=== PATIENT | female | born 1955 | race Caucasian/White ===

== ENCOUNTER 2020-05-25 07:59 | Outpatient (REF) | payer BC, SELFPAY ==
[2020-05-25 11:15] LABS: Hematocrit 40.4 % (37-47); Hemoglobin 13.1 g/dl (12.0-16.0); Mean Corpuscular HGB Conc 32.4 g/dl (31.0-35.0); Mean Corpuscular Hemoglobin 30.1 pg (27.0-33.0); Mean Corpuscular Volume 92.9 fL (80-98); Mean Platelet Volume 11.7 fL (9.4-12.3); Platelet Count 245 X10*3/uL (160-400); Red Blood Count 4.35 X10*6/uL (4.20-5.50); Red Cell Distribution Width 11.9 % (11.0-16.0); White Blood Count 5.9 X10*3/uL (4.8-10.8)
[2020-05-25 11:44] LABS: Alanine Aminotransferase 14 U/L (0-31); Albumin Level 4.4 g/dL (3.5-5.0); Alkaline Phosphatase 57 U/L (39-117); Anion Gap 9 (12-20); Aspartate Amino Transferase 12 U/L (5-31); Bilirubin Total 0.6 mg/dL (0.0-1.0); Blood Urea Nitrogen 20 mg/dL (9-16); Calcium 9.2 mg/dL (8.4-10.2); Carbon Dioxide 27 mmol/L (22-29); Chloride 107 mmol/L (96-108); Cholesterol 179 mg/dL; Estimated Glomerular Filt Rate > 60; Glucose Fasting 87 mg/dL (60-99); HDL Cholesterol 55 mg/dL; LDL Cholesterol Calculated 109 mg/dl; Potassium 4.4 mmol/l (3.3-5.1); Sodium 139 mmol/L (135-145); Total Protein 6.9 g/dL (6.5-8.0); Triglycerides 75 mg/dL
[2020-05-25 12:08] LABS: Thyroid Stimulating Hormone 0.89 uIU/mL (0.32-4.0); Vitamin D 25-OH Total 14.8 ng/mL (>30)
== END 2020-05-25 08:00 | disposition home or self-care (01) ==
LOC: HO.MANLDS 07:59
PROVIDERS: PCP Internal Medicine; Visit Provider Internal Medicine
DX: Z00.00 Encounter for general adult medical examination without abnormal findings (principal)
CPT/HCPCS: 36415; 80053; 80061; 82306; 84443; 85027

== ENCOUNTER 2025-04-25 08:32 | Outpatient (REF) | payer BC, MEDICARE, SELFPAY ==
--- OUTSIDE RECORDS SUMMARY | 2025-04-25 08:44 | XMS_ITS | Encounter Summary ---
Author Organization [facility] Address [address] [place] [address] [place] [address] Phone Care Team Providers Care Tugboat Pilot Name Role Phone Phil Nieves DO Primary Care Provider Phil Nieves DO Unavailable Patricia Knight DIRECTOR PROFESSIONAL SERVICES Unavailable Tammy KnowlesM Unavailable Mariposa Eckert DIRECTOR PROFESSIONAL SERVICES Unavailable Althea Agarwal DIRECTOR PROFESSIONAL SERVICES Unavailable Berenice Hsieh DIRECTOR PROFESSIONAL SERVICES Unavailable Phil Nieves DO Unavailable Encounter Details Date Type Department Care Team (Late st Contact Info) Description 04/24/2020 Ancillary Orders Virtual Department [address] [place] [address] Phil Nieves DO [address] [facility] [place] [address] [place] [address] [email or web address] Other specified disorders of bone density and structure, unspecified site; Osteopenia, unspecified location; Knee pain, unspecified chronicity, unspecified laterality Social History Tobacco Use Types Packs/Day Years Used Date Smoking Tobacco: Never Smokeless Tobacco: Never Alcohol Use Standard Drinks/Week Comments Yes 5 (1 standard drink = 0.6 oz pur e alcohol) Comments No Sex and Gender Information Value Date Recorded Sex Assigned at Not on file Legal Sex Female 1:20 PM EDT Gender Identity Not on file Sexual Orientation Not on file 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 on file Not on file documented as of this encounter Plan of Treatment Upcoming Encounters Date Type Department Care Team (Late st Contact Info) Description 09/06/2025 7:45 AM EDT Appointment [facility], Bone Density - [facility] [address] [place] [address] Phil Nieves DO [address] [facility] [place] [address] [place] [address] [email or web address] documented as of this encounter Results * BD DXA AXIAL (SPINE) WITH HIP (07/12/2020 8:41 AM EST) Anatomical Region Laterality Modality Bone Density Bone Density 07/12/2020 8:43 AM EST Narrative 07/12/2020 8:52 AM EST This is a 65-year-old with provided clinical history to evaluate for bone density. Menopause age: 53.. Evaluation of the lumbar spine and hips was performed and appears to be technically adequate. Total bone mineral density in the L1-L4 vertebral bodies was calculated at 0.762 gm/cm2 with a T score of -2.6. This falls within the WHO classification of osteoporosis. Total bone mineral density in the right proximal femur was calculated at 0.726 gm/cm2 with a T-score of -1.8 falling within the WHO classification of osteopenia. Right femoral neck bone mineral density was calculated at 0.640 gm/cm2 with a T- score of -1.9. Total bone mineral density in the left proximal femur was calculated at 0.726 gm/cm2 with a T-score of -1.8 falling within the WHO classification of osteopenia. Bone mineral density in the left femoral neck was calculated at 0.626 gm/cm2 with a T-score of -2.0. FRAX: WHO Fracture Risk Assessment: Not reported because some T score for spine total or hip total or femoral neck at or below -2.5 CONCLUSION: L1-L4 vertebral body BMD: Osteoporosis. Total bilateral proximal femora BMD: Osteopenia. Procedure Note Mckay Rodriguez MD - 07/12/2020 This is a 65-year-old with provided clinical history to evaluate for bonedensity. Menopause age: 53.. Evaluation of the lumbar spine and hips was performed and appears to betechnically adequate. Total bone mineral density in the L1-L4 vertebral bodies was calculated at0.762 gm/cm2 with a T score of -2.6. This falls within the WHOclassification of osteoporosis. Total bone mineral density in the right proximal femur was calculated at0.726 gm/cm2 with a T-score of -1.8 falling within the WHO classificationof osteopenia. Right femoral neck bone mineral density was calculated at0.640 gm/cm2 with a T-score of -1.9. Total bone mineral density in the left proximal femur was calculated at0.726 gm/cm2 with a T-score of -1.8 falling within the WHO classificationof osteopenia. Bone mineral density in the left femoral neck wascalculated at 0.626 gm/cm2 with a T- score of -2.0. FRAX: WHO Fracture Risk Assessment: Not reported because some T score for spine total or hip total or femoralneck at or below -2.5 CONCLUSION: L1-L4 vertebral body BMD: Osteoporosis. Total bilateral proximal femora BMD: Osteopenia. 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 Narrative 05/10/2020 12:48 PM EST TECHNIQUE: XR KNEE 4 OR MORE VIEWS (BILATERAL) COMPARISON: None FINDINGS: Right side: There is normal bone mineralization. There is mild DJD involving the tibiofemoral joint with loss of cartilage space and subchondral sclerosis. There is no convincing evidence of joint effusion. Retropatellar space is maintained. Left side: There is moderate DJD at the femorotibial joint. There is no joint effusion and no significant retropatellar arthrosis. Multifocal osteophytes are noticed as well as small, well-corticated bone fragments adjacent to the fibula and femorotibial joint space. Procedure Note David Nash MD - 05/10/2020 TECHNIQUE: XR KNEE 4 OR MORE VIEWS (BILATERAL) COMPARISON: None FINDINGS: Right side: There is normal bone mineralization. There is mild DJDinvolving the tibiofemoral joint with loss of cartilage space andsubchondral sclerosis. There is no convincing evidence of joint effusion.Retropatellar space is maintained. Left side: There is moderate DJD at the femorotibial joint. There is nojoint effusion and no significant retropatellar arthrosis. Multifocalosteophytes are noticed as well as small, well-corticated bone fragmentsadjacent to the fibula and femorotibial joint space. IMPRESSION: Bilateral DJD of the femorotibial joint, mild on the right and moderate onthe left, as described above. Phil Nieves DO IMG XR LOWER EXTREMITY Final Res ult documented in this encounter Visit Diagnoses Diagnosis Other specified disorders of bone density and structure, unspecified site Osteopenia, unspecified location Knee pain, unspecified chronicity, unspecified laterality Knee pain, unspecified chronicity, unspecified laterality Other specified disorders of bone density and structure, unspecified site Osteopenia, unspecified location documented in this encounter Care Teams Tugboat Pilot Relationship Specialty Start Date End Date Phil Nieves DO PCP - General 10/05/15 Phil Nieves DO Historical LMR Provider 02/16/17 Patricia Knight, BERNADETTE [address] [address] Historical LMR Provider 02/16/17 2 Tammy Knowles CNM [address] [place] [address] Historical LMR Provider 02/16/17 2 Mariposa Eckert NP [address] [place] [address] [email or web address] Historical LMR Provider 02/16/17 2 Althea Agarwal NP [address] [place] [address] Historical LMR Provider 02/16/17 2 Berenice Hsieh NP [address] [place] [address] Historical LMR Provider 02/16/17 2 Phil Nieves DO [address] [place] [address] [email or web address] Insurance Assigned Provider 08/07/18 documented as of this encounter Additional Source Comments The information contained in this document represents components of the legal health record. It is not the complete legal health record.[facility]
--- OUTSIDE RECORDS SUMMARY | 2025-04-25 08:44 | XMS_ITS | Encounter Summary ---
Author Organization [facility] Address [address] [place] [address] Phone Care Team Providers Care Leather Patcher Name Role Phone Phil Nieves DO Primary Care Provider [phone] Phil Nieves DO Unavailable Patricia Knight JAW SKINNER Unavailable Tammy Knowles CNM Unavailable Mariposa Eckert JAW SKINNER Unavailable Althea Agarwal JAW SKINNER Unavailable Berenice Hsieh JAW SKINNER Unavailable BigPhil sesay DO Unavailable Encounter Details Date Type Department Care Team (Late st Contact Info) Description 03/30/2018 Procedure Pass [facility] Endoscopy Admitting Dept Virtual Department [address] [place] [address] Social History Tobacco Use Types Packs/Day Years [...] 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 on file Not on file documented as of this encounter Plan of Treatment Upcoming Encounters Date Type Department Care Team (Late st Contact Info) Description 09/06/2025 7:45 AM EDT Appointment [facility], [facility] [address] [place] [address] Phil Nieves DO [address] [facility] [place] [address] documented as of this encounter Visit Diagnoses Not on filedocumented in this encounter Care Teams Leather Patcher Relationship Specialty Start Date End Date Phil Nieves DO PCP - General 10/05/15 Phil Nieves DO Historical LMR Provider 02/16/17 Patricia Knight, BERNADETTE [address] [place] [address] Historical LMR Provider 02/16/17 2 Tammy Knowles CNM [address] [place] [address] Historical LMR Provider 02/16/17 2 Mariposa Eckert, JAW SKINNER [address] [place] [address] [email or web address] Historical LMR Provider 02/16/17 2 Althea Agarwal, BERNADETTE [address] [place] [address] Historical LMR Provider 02/16/17 2 Berenice Hsieh NP [address] [place] [address] Historical LMR Provider 02/16/17 2 Phil Nieves DO [address] [place] [address] [email or web address] Insurance Assigned Provider 08/07/18 documented as of this encounter Additional Source Comments The information contained in this document represents components of the legal health record. It is not the complete legal health record.[facility]
--- OUTSIDE RECORDS SUMMARY | 2025-04-25 08:44 | XMS_ITS | Encounter Summary ---
Author Organization [facility] Address [address] [place] [address] Phone Care Team Providers Care Sewer Head Name Role Phone Phil Nieves DO Primary Care Provider [phone] Phil Nieves DO Unavailable Encounter Details Date Type Department Care Team (Late st Contact Info) Description 11/12/2023 Procedure Pass [facility] Endoscopy Admitting Dept Virtual Department [address] [place] [address] Social History Tobacco Use Types Packs/Day Years Used Date Smoking Tobacco: Never Smokeless Tobacco: Never Alcohol Use Standard Drinks/Week Comments Yes 5 (1 standard drink = 0.6 oz pur e alcohol) Education Answer Date Recorded Are you interested in more education? Not on krishna e 08/29/2022 Are you concerned about learning? Not on file 08/29/2022 No 08/29/2022 No 08/29/2022 Digital Access Answer Date Recorded No 09/29/2022 No 09/29/2022 Reliable internet access at home? Not on file 09/29/2022 Device with a working camera? Not on file Intimate Partner Violence Answer Date R ecorded Are you denied basic needs s uch as food, clothing, or medical care? No 11/12/2023 In the past 12 months have y ou been in a relationship with a person who hurts, threatens, or tries to control you? No 11/12/2023 Are you denied basic needs s uch as food, clothing, or medical care? No 11/12/2023 In the past 12 months have y ou been in a relationship with a person who hurts, threatens, or tries to control you? 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 file Not on file documented as of this encounter Plan of Treatment Upcoming Encounters Date Type Department Care Team (Late st Contact Info) Description 09/06/2025 7:45 AM EDT Appointment [facility], [facility] [address] [place] [address] Phil Nieves DO [address] [facility] [place] [address] documented as of this encounter Visit Diagnoses Not on filedocumented in this encounter Care Teams Sewer Head Relationship Specialty Start Date End Date Phil Nieves DO PCP - General 10/05/15 Phil Nieves DO Historical LMR Provider 02/16/17 documented as of this encounter Additional Source Comments The information contained in this document represents components of the legal health record. It is not the complete legal health record.[facility]
--- OUTSIDE RECORDS SUMMARY | 2025-04-25 08:44 | XMS_ITS | Encounter Summary ---
Author Organization [facility] Address [address] [place] [address] Phone Care Team Providers Care Cell Reliner Name Role Phone Phil Nieves DO Primary Care Provider Phil Nieves DO Unavailable Patricia Knight NETWORK ASSOCIATE Unavailable Tammy KnowlesM Unavailable Mariposa Eckert NETWORK ASSOCIATE Unavailable Althea Agarwal NETWORK ASSOCIATE Unavailable Berenice Hsieh NETWORK ASSOCIATE Unavailable Phil Nieves DO Unavailable Encounter Details Date Type Department Care Team (Late st Contact Info) Description 05/09/2020 Ancillary Orders Virtual Department [address] [place] [address] Phil Nieves DO [address] [facility] [place] [address] [place] [address] [email or web address] Breast screening Social History Tobacco Use Types Packs/Day Years [...] 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 Not on file documented as of this encounter Plan of Treatment Upcoming Encounters Date Type Department Care Team (Late st Contact Info) Description 09/06/2025 7:45 AM EDT Appointment [facility], Bone Density - [facility] [address] [place] [address] Phil Neives DO [address] [facility] [place] [address] [place] [address] [email or web address] documented as of this encounter Results * BI MAMMOGRAM SCREENING WITH TOMOSYNTHESIS WITH CAD (BILATERAL) (07/12/2020 8:08 AM EST) Anatomical Region Laterality Modality Breast Left, Breast Right, Breast Bilateral Bila teral Mammography 07/12/2020 3:28 PM EST Impressions 07/12/2020 3:30 PM EST BILATERAL BREASTS: Negative, no evidence of malignancy. Normal interval follow- up is recommended in 12 months. Bi-RADS: BI-RADS CATEGORY: 1 - Negative. DENSITY: There are scattered fibroglandular densities. Narrative 07/12/2020 3:30 PM EST STUDY: Bilateral screening mammography with tomosynthesis and CAD TECHNIQUE: Bilateral full-field digital screening mammography is obtained and read in conjunction with computer-aided detection. Tomosynthesis as well as 2-D C view imaging were obtained. COMPARISON: Comparison made to multiple prior, most recent December 31, 2017, and most remote January 14, 2012. BREAST COMPOSITION: There are scattered areas of fibroglandular density BILATERAL BREASTS: No significant masses, suspicious calcifications or other abnormalities are seen. Procedure Note Irineo Aparicio MD - 07/12/2020 STUDY: Bilateral screening mammography with tomosynthesis and CAD TECHNIQUE: Bilateral full-field digital screening mammography is obtainedand read in conjunction with computer-aided detection. Tomosynthesis aswell as 2-D C view imaging were obtained. COMPARISON: Comparison made to multiple prior, most recent December, and most remote January 14, 2012. BREAST COMPOSITION: There are scattered areas of fibroglandulardensity BILATERAL BREASTS: No significant masses, suspicious calcifications orother abnormalities are seen. IMPRESSION: BILATERAL BREASTS: Negative, no evidence of malignancy. Normal intervalfollow-up is recommended in 12 months. Bi-RADS: BI-RADS CATEGORY: 1 - Negative. DENSITY: There are scattered fibroglandular densities. Phil Nieves DO IMG MG EXAMS Final Result documented in this encounter Visit Diagnoses Diagnosis Breast screening Breast screening, unspecified Breast screening Breast screening, unspecified documented in this encounter Care Teams Cell Reliner Relationship Specialty Start Date End Date Phil Nieves DO PCP - General 10/05/15 Phil Nieves DO Historical LMR Provider 02/16/17 Patricia Knight NP [address] [place] [address] Historical LMR Provider 02/16/17 2 Tammy Knowles CNM [address] [place] [address] Historical LMR Provider 02/16/17 2 Mariposa Eckert NP [address] [place] [address] [email or web address] Historical LMR Provider 02/16/17 2 Althea Agarwal NP [address] [place] [address] Historical LMR Provider 02/16/17 2 Berenice Hsieh NP [address] [place] [address] Historical LMR Provider 02/16/17 2 Phil Nieves DO [address] [place] [address] [email or web address] Insurance Assigned Provider 08/07/18 documented as of this encounter Additional Source Comments The information contained in this document represents components of the legal health record. It is not the complete legal health record.[facility]
--- OUTSIDE RECORDS SUMMARY | 2025-04-25 08:44 | XMS_ITS | Encounter Summary ---
Author Organization [facility] Address [address] [place] [address] Phone Care Team Providers Care Abstract Maker Name Role Phone Phil Nieves DO Primary Care Provider [phone] Phil Nieves DO Unavailable Patricia Knight DROP CREW LABORER Unavailable Tammy KnowlesM Unavailable Mariposa Eckert DROP CREW LABORER Unavailable Althea Agarwal DROP CREW LABORER Unavailable Berenice Hsieh DROP CREW LABORER Unavailable [email or web address] DO Unavailable Encounter Details Date Type Department Care Team (Late Contact Info) Description 05/09/2020 Procedure Pass [facility], [facility] [address] [place] [address] Social History Tobacco Use Types Packs/Day Years [...] 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 [address] [place] [address] Phil Nieves DO [address] [facility] [place] [address] [place] [address] documented as of this encounter Visit Diagnoses Not on filedocumented in this encounter Care Teams Abstract Maker Relationship Specialty Start Date End Date Phil Nieves DO PCP - General 10/05/15 Phil Nieves DO Historical LMR Provider 02/16/17 Patricia Knight, DROP CREW LABORER [address] [place] [address] Historical LMR Provider 02/16/17 2 Tammy Knowles CNM [address] [place] [address] Historical LMR Provider 02/16/17 2 Mariposa Eckert, DROP CREW LABORER [address] [place] [address] [email or web address] Historical LMR Provider 02/16/17 2 Althea Agarwal, DROP CREW LABORER [address] [place] [address] Historical LMR Provider 02/16/17 2 Berenice Hsieh, DROP CREW LABORER [address] [place] [address] Historical LMR Provider 02/16/17 2 Phil Nieevs DO [address] [place] [address] [email or web address] Insurance Assigned Provider 08/07/18 documented as of this encounter Additional Source Comments The information contained in this document represents components of the legal health record. It is not the complete legal health record.[facility]
--- OUTSIDE RECORDS SUMMARY | 2025-04-25 08:45 | XMS_ITS | Encounter Summary ---
Author Organization [facility] Address [address] [facility] [address] [place] [address] Phone Care Team Providers Care Imaging Scheduler Name Role Phone Phil Nieves DO Primary Care Provider [phone] Phil Nieves DO Unavailable Encounter Details Date Type Department Care Team ([facility] st Contact Info) Description 01/20/2024 Transcribe Orders Virtual Department [address] [place] [address] Phil Nieves DO [address] [facility] [place] [address] [place] [address] [email or web address] Breast screening (Primary Dx) Social History Tobacco Use Types Packs/Day Years [...] 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 Not on file documented as of this encounter Plan of Treatment Upcoming Encounters Date Type Department Care Team (Late st Contact Info) Description 09/06/2025 7:45 AM EDT Appointment [facility], [facility] [address] [place] [address] Phil Nieves DO [address] [place] [address] [email or web address] documented as of this encounter Results * BI MAMMOGRAM SCREENING WITH TOMOSYNTHESIS WITH CAD (BILATERAL) (02/02/2024 9:59 AM EDT) Anatomical Region Laterality Modality Breast Left, Breast Right, Breast Bilateral Bila teral Mammography 02/02/2024 1:05 PM EDT Impressions 02/02/2024 1:07 PM EDT No mammographic evidence of malignancy in either breast. Annual screening mammography is recommended. BI-RADS 1 NEGATIVE The patient will be notified of the results and recommendations. Narrative 02/02/2024 1:07 PM EDT BI MAMMOGRAM SCREENING WITH TOMOSYNTHESIS WITH CAD (BILATERAL) Additional patient information: Screening. COMPARISON: Comparison is made with relevant prior imaging. Breast composition: There are scattered areas of fibroglandular density. FINDINGS: No abnormal masses, suspicious calcifications, or other significant findings are identified mammographically in either breast. Procedure Note Eusebia Levine MD - 02/02/2024 BI MAMMOGRAM SCREENING WITH TOMOSYNTHESIS WITH CAD (BILATERAL) Additional patient information: Screening. COMPARISON: Comparison is made with relevant prior imaging. Breast composition: There are scattered areas of fibroglandular density. FINDINGS: No abnormal masses, suspicious calcifications, or other significantfindings are identified mammographically in either breast. IMPRESSION: No mammographic evidence of malignancy in either breast. Annual screening mammography is recommended. BI-RADS 1 NEGATIVE The patient will be notified of the results and recommendations. us Phil Nieves DO IMG MG EXAMS Final Result documented in this encounter Visit Diagnoses Diagnosis Breast screening- Primary Breast screening, unspecified Breast screening Breast screening, unspecified documented in this encounter Care Teams Imaging Scheduler Relationship Specialty Start Date End Date Phil Nieves DO [email or web address] PCP - General 10/05/15 Phil Nieves DO [email or web address] Historical LMR Provider 02/16/17 documented as of this encounter Additional Source Comments The information contained in this document represents components of the legal health record. It is not the complete legal health record.[facility]
--- OUTSIDE RECORDS SUMMARY | 2025-04-25 08:45 | XMS_ITS | Encounter Summary ---
Author Organization [facility] Address [address] [facility] [address] [place] [address] Phone Care Team Providers Care Surface Boss Name Role Phone Phil Nieves DO Primary Care Provider [phone] Phil Nieves DO Unavailable Encounter Details Date Type Department Care Team ([facility] st Contact Info) Description 04/04/2025 Transcribe Orders Virtual Department [address] [place] [address] Phil Nieves DO [address] [facility] 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 Not on file documented as of this encounter Plan of Treatment Upcoming Encounters Date Type Department Care Team (Late st Contact Info) Description 09/06/2025 7:45 AM EDT Appointment [facility], Bone Density - [facility] [address] [place] [address] Phil Nieves DO [address] [facility] [place] [address] [email or web address] Scheduled Orders Name Type Priority Associated Diagnoses Orde r Schedule DXA Screening Imaging Routine Encounter for screening for osteoporosis Expected: 05/04/2025, Expires: 04/04/2026 documented as of this encounter Visit Diagnoses Diagnosis Encounter for screening for osteoporosis- Primary documented in this encounter Care Teams Surface Boss Relationship Specialty Start Date End Date Phil Nieves DO [email or web address] PCP - General 10/05/15 Phil Nieves DO [email or web address] Historical LMR Provider 02/16/17 documented as of this encounter Additional Source Comments The information contained in this document represents components of the legal health record. It is not the complete legal health record.[facility]
--- OUTSIDE RECORDS SUMMARY | 2025-04-25 08:45 | XMS_ITS | Encounter Summary ---
Author Organization [facility] Address [address] [place] [address] Phone Care Team Providers Care Mechanical Ordnance Assembler Name Role Phone KennylázaroPhil DO Primary Care Provider [phone] Phil Nieves DO Unavailable Encounter Details Date Type Department Care Team (Late st Contact Info) Description 11/25/2022 Procedure Pass [facility], [address] [address] Social History Tobacco Use Types Packs/Day Years [...] with a working camera? 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 Not on file Not on file documented as of this encounter Plan of Treatment Upcoming Encounters Date Type Department Care Team (Late st Contact Info) Description 09/06/2025 7:45 AM EDT Appointment [facility], Bone Density - [facility] [address] [place] [address] Phil Nieves DO [address] [facility] [address] [place] [address] [email or web address] documented as of this encounter Visit Diagnoses Not on filedocumented in this encounter Care Teams Mechanical Ordnance Assembler Relationship Specialty Start Date End Date Phil Nieves DO PCP - General 10/05/15 Pihl Nieves DO Historical LMR Provider 02/16/17 documented as of this encounter Additional Source Comments The information contained in this document represents components of the legal health record. It is not the complete legal health record.[facility]
--- OUTSIDE RECORDS SUMMARY | 2025-04-25 08:45 | XMS_ITS | Encounter Summary ---
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 Not on file Not on file documented as of this encounter Plan of Treatment Upcoming Encounters Date Type Department Care Team (Late st Contact Info) Description 09/06/2025 7:45 AM EDT Appointment [facility], [facility] [address] [place] [address] Phil Nieves DO [address] [facility] [place] [address] [email or web address] documented as of this encounter Visit Diagnoses Not on filedocumented in this encounter Care Teams Svp Of Digital Relationship Specialty Start Date End Date Phil Nieves DO PCP - General 10/05/15 Phil Nieves DO Historical LMR Provider 02/16/17 documented as of this encounter Additional Source Comments The information contained in this document represents components of the legal health record. It is not the complete legal health record.[facility]
--- OUTSIDE RECORDS SUMMARY | 2025-04-25 08:45 | XMS_ITS | Clinical Summary ---
Author Organization [facility] Address [address] [address] Phone Care Team Providers Care Director Of Bands Name Role Phone Ciarra Slater DO Primary Care Provider Ciarra Slater DO Unavailable Allergies No known active allergies Medications valACYclovir (VALTREX) 1000 MG tablet TAKE 1 TABLET BY MOUTH TWICE A DAY FOR 1 DAY 12/02/2022 Active Active Problems Problem Noted Date Diagnosed Date Lichen sclerosus 02/01/2018 Assessment & Plan (04/25/2021 9:30 AM EST): Not under good control Has been using topicals about 1-2x monthly Feels intermittent discomfort Sex is rare, and painful We reviewed today with a mirror the area of LS and how to apply the clobetasol, and estrace. Lluvia handout put in AVS, she is on portal Advised f/u visit in 3-6 months Assessment & Plan (02/01/2018 11:06 AM EDT): Discussed importance of ongoing topical therapy to decrease progression and avoid onset of symptoms. Suggested she use in conjunction with estrace once on twice weekly schedule.. Reviewed sparing use of clobetasol in lentil size amount and then layer estrace on top twice weekly Vaginal atrophy 02/01/2018 Assessment & Plan (04/25/2021 9:31 AM EST): Discussed option to use estrace intravaginally with applicator or finger, 1g twice weekly to increase chance of comfort with sex, vs. A small amount at the introitus twice weekly Assessment & Plan (02/01/2018 11:03 AM EDT): Recommended regular schedule of estrace for increased sexual comfort. Estrace initial and maintenance dosing reviewed. Offered 3 mo follow up for eval of response to therapy or routine 6 mo LS f/u Encounters Date Type Department Care Team Description 04/04/2025 Transcribe Orders Virtual Department [address] [place] [address] Ciarra Slater, Encounter for screening for osteoporosis (Primary Dx) 02/03/2025 10:59 AM EDT - 02/03/2025 11:59 PM EDT Hospital Encounter [address] [address] Ciarra Slater, DO Discharge Disposition: Home or Self Care 11/28/2024 Procedure Pass [address] [address] from Last 3 Months Family History Medical History Relation Comments Lung cancer Father Cancer Mother Gallbladder Breast cancer Paternal Aunt Colon cancer Paternal Aunt Relation Status Comments Father Mother Paternal Aunt Social History Tobacco Use Types Packs/Day Years Used Date Smoking Tobacco: Never Smokeless Tobacco: Never Tobacco Cessation:Counseling Given: Not Answered Alcohol Use Standard Drinks/Week Comments Not Currently [...] 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 Not on file Not on file Last Filed Vital Signs Vital Sign Reading Time Taken Comments Blood Pressure 132/81 11/12/2023 9:39 AM EDT Pulse 61 11/12/2023 9:39 AM EDT Temperature 36.2 C (97.2 F) 11/12/2023 9:24 AM EDT Respiratory Rate 17 11/12/2023 9:39 AM EDT Oxygen Saturation 99% 11/12/2023 9:39 AM EDT Inhaled Oxygen Concentration - - Weight 70.3 kg (155 lb) 11/12/2023 8:23 AM EDT Height 167.6 cm (5' 6 ) 11/12/2023 8:23 AM EDT Body Mass Index 25.02 11/12/2023 8:23 AM EDT Plan of Treatment Upcoming Encounters Date Type Department Care Team (Late st Contact Info) Description 09/06/2025 7:45 AM EDT Appointment [facility], Bone Density - [address] [address] Ciarra Slater, [address] [facility] [place] [address] [email or web address] Health Maintenance Due Date Last Done Comments DEPRESSION SCREENING 1968 HEPATITIS C SCREENING 1974 SCREENING FOR DIABETES 1991 COLOGUARD 2001 FIT TEST 2001 FOBT 2001 SIGMOIDOSCOPY 2001 VIRTUAL COLONOSCOPY 2001 PNEUMOCOCCAL VACCINES (50+ years) (1 of 1 - PCV) 2006 INFLUENZA VACCINE (#1) 2024 , 02/28/2022, 03/12/2021, Additional history exists COVID-19 VACCINE ( season) 2025 02/26/2023, 02/28/2022, 03/12/2021, Additional history exists LIPID PANEL 05/25/2025 05/25/2020 MAMMOGRAM 02/03/2027 02/03/2025, 1005/2023, 12/02/2022, Additional history exists COLONOSCOPY 11/11/2030 11/12/2023, 03/30/2018 COLORECTAL CANCER SCREENING 11/11/2030 RSV VACCINE (1 - 1-dose 75+ series) 2031 Adult Td,Tdap Booster 09/30/2032 09/30/2022 OSTEOPOROSIS SCREENING INITIAL (ONE-TIME) Completed 07/12/2020 ZOSTER VACCINES Completed 02/26/2023, 09/30/2022 SMOKING STATUS SCREENING (Once After 26 Yrs) Completed 02/03/2025 HEPATITIS A VACCINES Aged Out No long er eligible based on patient's age to complete this topic HIB VACCINES Aged Out No longer eligi ble based on patient's age to complete this topic MENINGOCOCCAL VACCINES (ACWY) Aged Out No longer eligible based on patient's age to complete this topic MENINGOCOCCAL VACCINES (B) Aged Out N o longer eligible based on patient's age to complete this topic Medical Devices Not on file Procedures Procedure Name Priority Date/Time Associated Diagnosis Comments BI MAMMOGRAM SCREENING WITH TOMOSYNTHESIS WITH CAD (BILATERAL) Routine 02/03/2025 11:12 AM EDT Breast screening ENDOSCOPY, COLON 11/12/2023 9:00 AM EDT BD DXA AXIAL (SPINE) WITH HIP Routine 07/12/2020 8:41 AM EST Other specified disorders of bone density and structure, unspecified site Osteopenia, unspecified location from Last 3 Months or Most Recently Relevant to Health Maintenance Results * BI MAMMOGRAM SCREENING WITH TOMOSYNTHESIS WITH CAD (BILATERAL) (02/03/2025 11:12 AM EDT) Anatomical Region Laterality Modality Breast Left, Breast Right, Breast Bilateral Bila teral Mammography 02/03/2025 3:28 PM EDT Impressions 02/03/2025 3:28 PM EDT No mammographic evidence of malignancy in either breast. Annual screening mammography is recommended. BI-RADS 1 NEGATIVE The patient will be notified of the results and recommendations. Narrative 02/03/2025 3:28 PM EDT BI MAMMOGRAM SCREENING WITH TOMOSYNTHESIS WITH CAD (BILATERAL) Additional patient information: Screening. COMPARISON: Comparison is made with relevant prior imaging. Breast composition: There are scattered areas of fibroglandular density. FINDINGS: No abnormal masses, suspicious calcifications, or other significant findings are identified mammographically in either breast. Procedure Note Eusebia Martínez MD - 02/03/2025 BI MAMMOGRAM SCREENING WITH TOMOSYNTHESIS WITH CAD [...] notified of the results and recommendations. us Ciarra A Bigda DO IMG MG EXAMS Final Result * ENDOSCOPY, COLON (11/12/2023 9:00 AM EDT) Narrative Transcriptions Bart Aviles MD - 11/12/2023 9:00 AM EDT [facility] Patient Name: Michelle Rangel Attending MD:: BART AVILES MD, Procedure Date: 11/12/2023 9:00 AM Date of : 1955 Age: 68 Admit Type: Outpatient Gender: Female Room: [facility] Referring MD: CIARRA SLATER DO Exam Type: Colonoscopy Indications: Screening for colon cancer: Family history of colorectal cancer in multiple 2nd degree relatives, (cousin, aunt) Last colonoscopy: March 2018 Medications: Propofol per Anesthesia Procedure: Informed consent was obtained from the patientafter discussion of the indications, limitations, alternatives, benefits, and risks of the procedure. Risks specifically discussed include but are not limited to medication reactions, missed lesions, bleeding, perforation, or the need for emergent surgery. Throughout the procedure, the patient's blood pressure, pulse, end-tidal CO2, and oxygensaturations were monitored continuously. The Colonoscope was introduced through the anus and advanced to the cecum, identified by appendiceal orifice and ileocecal valve. The ileocecal valve, appendiceal orifice, and rectum were photographed.The colonoscopy was performed without difficulty. The patient tolerated the procedure well. The qualityof the bowel preparation was good. The bowelpreparation used was GoLYTELY via split dose instruction. Complications: No immediate complications. Estimated blood loss:None. Findings: The perianal and digital rectal examinations were normal. Pertinent negatives include no palpablerectal lesions. The entire examined colon appeared normal on direct and retroflexion views. Retroflexion in the right colon was performed. Impression: - The entire examined colon is normal on direct and retroflexion views. - No specimens collected. Recommendation: - Repeat colonoscopy 7-8 years for screeningpurposes. BART AVILES MD 11/12/2023 9:24:20 AM This report has been signed electronically. Number of Addenda: 0 Note Initiated On: 11/12/2023 9:00 AM Procedure Code(s): --- Professional --- 97830, Colonoscopy, flexible; diagnostic, including collection of specimen(s) by brushing or washing, when performed (separateprocedure) --- Technical --- 03208, Colonoscopy, flexible; diagnostic, including collection of specimen(s) by brushing or washing, when performed (separateprocedure) Diagnosis Code(s): --- Professional --- Z80.0, Family history of malignant neoplasm of digestive organs --- Technical --- Z80.0, Family history of malignant neoplasm of digestive organs CPT copyright 2021 [employer]. All rights reserved. The codes documented in this report are preliminary and upon flat finisher reviewmay be revised to meet current compliance requirements. Procedure Date: 11/12/2023 9:00:[address] [place] [address] us Ciarra A Bigda DO GI PROCEDURE ORDERABLES Final Re sult * BD DXA AXIAL (SPINE) WITH HIP [...] Total bilateral proximal femora BMD: Osteopenia. us Ciarra A Bigda DO IMG BD BONE DENSITY DEXA Final R esult from Last 3 Months or Most Recently Relevant to Health Maintenance Insurance MEDICARE PART A & B [employer] MEDEX SUPPLEMENT MEDICARE PART A & B [employer] MEDEX SUPPLEMENT MEDICARE PART A & B MEDICARE PART A & B MEDICARE PART A & B [employer] SUPPLEMENT MEDICARE PART A & B MEDICARE PART A & B [employer] MEDEX SUPPLEMENT MEDICARE PART A & B [facility] SUPPLEMENT MEDICARE PART A & B [employer] MEDEX SUPPLEMENT Care Teams Director Of Bands Relationship Specialty Start Date End Date Ciarra Slater DO PCP - General 10/05/15 Ciarra Slater DO Historical LMR Provider 02/16/17 Additional Source Comments The information contained in this document represents components of the legal health record. It is not the complete legal health record.[facility]
--- OUTSIDE RECORDS SUMMARY | 2025-04-25 08:45 | XMS_ITS | Encounter Summary ---
Author Organization [facility] Address [address] [place] [address] Phone Care Team Providers Care Data Entry Representative Name Role Phone Phil Nieves DO Primary Care Provider Phil Nieves DO Unavailable Patricia Knight FOOD SAFETY OFFICER Unavailable Tammy KnowlesM Unavailable Mariposa Eckert FOOD SAFETY OFFICER Unavailable Althea Agarwal FOOD SAFETY OFFICER Unavailable Berenice Hsieh FOOD SAFETY OFFICER Unavailable Phil Nieves DO Unavailable Encounter Details Date Type Department Care Team (Late Contact Info) Description 11/26/2017 Ancillary Orders Virtual Department [address] [place] [address] Phil Nieves DO [address] [facility] [place] [address] [place] [address] [email or web address] Breast screening Social History Tobacco Use Types Packs/Day Years Used Date Smoking Tobacco: Never Assessed Comments Unknown Sex and Gender Information Value Date Recorded Sex Assigned at Not on file Legal Sex Female 1:20 PM EDT Gender Identity Not on file Sexual Orientation Not on file documented as of this encounter Plan of Treatment Upcoming Encounters Date Type Department Care Team (Late st Contact Info) Description 09/06/2025 7:45 AM EDT Appointment [facility], Bone Density - [facility] [address] [place] [address] Phil Nieves, [address] [facility] [place] [address] [place] [address] [email or web address] documented as of this encounter Results * BI MAMMOGRAM SCREENING WITH TOMOSYNTHESIS WITH CAD (BILATERAL) (12/31/2017 8:13 AM EDT) Anatomical Region Laterality Modality Breast Left, Breast Right, Breast Bilateral Bila teral Mammography 12/31/2017 9:05 AM EDT Impressions 12/31/2017 9:14 AM EDT No mammographic evidence of malignancy. BI-RADS CATEGORY: 2 - Benign finding. DENSITY: There are scattered fibroglandular densities. POS - [id number] Narrative 12/31/2017 9:14 AM EDT Standard digital full-field 2-D C view and two-plane tomographic imaging was performed and compared with multiple prior studies, most recently 10/01/2016 and 10/08/2016, with utilization of computer-aided detection. The breasts are composed of scattered fibroglandular densities. There has been interval decrease in size of the sonographically-demonstrated cyst in the upper outer quadrant of the right breast. The stromal markings are otherwise essentially unchanged in overall appearance and distribution. No dominant spiculated mass, suspicious clustered microcalcifications, or focal zone of pathologic skin thickening or retraction are noted to have arisen in the interim. Procedure Note Bart Zheng MD - 12/31/2017 Standard digital full-field 2-D C view and two-plane tomographic imagingwas performed and compared with multiple prior studies, most [id number]/31/2017 and 10/08/2016, with utilization of computer-aided detection. The breasts are composed of scattered fibroglandular densities. There hasbeen interval decrease in size of the sonographically-demonstrated cyst inthe upper outer quadrant of the right breast. The stromal markings areotherwise essentially unchanged in overall appearance and distribution. Nodominant spiculated mass, suspicious clustered microcalcifications, orfocal zone of pathologic skin thickening or retraction are noted to havearisen in the interim. IMPRESSION: No mammographic evidence of malignancy. BI-RADS CATEGORY: 2 - Benign finding. DENSITY: There are scattered fibroglandular densities. POS - [id number] us Phil Nieves DO IMG MG EXAMS Final Result documented in this encounter Visit Diagnoses Diagnosis Breast screening Breast screening, unspecified Breast screening Breast screening, unspecified documented in this encounter Care Teams Data Entry Representative Relationship Specialty Start Date End Date Phil Nieves DO PCP - General 10/05/15 Phil Nieves DO Historical LMR Provider 02/16/17 Patricia Knight NP [address] [address] Historical LMR Provider 02/16/17 2 Tammy Knowles CNM [address] [place] [address] Historical LMR Provider 02/16/17 2 Mariposa Eckert NP [address] [place] [address] [email or web address] Historical LMR Provider 02/16/17 2 Althea Agarwal NP [address] [place] [address] Historical LMR Provider 02/16/17 2 Berenice Hsieh NP [address] [place] [address] Historical LMR Provider 02/16/17 2 Phil Nieves DO [address] [place] [address] [email or web address] Insurance Assigned Provider 08/07/18 documented as of this encounter Additional Source Comments The information contained in this document represents components of the legal health record. It is not the complete legal health record.[facility]
--- OUTSIDE RECORDS SUMMARY | 2025-04-25 08:45 | XMS_ITS | Encounter Summary ---
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 file Not on file documented as of this encounter Plan of Treatment Upcoming Encounters Date Type Department Care Team (Late st Contact Info) Description 09/06/2025 7:45 AM EDT Appointment [facility], [facility] [address] [place] [address] Phil Nieves DO [address] [facility] [place] [address] [place] [address] documented as of this encounter Visit Diagnoses Not on filedocumented in this encounter Care Teams Haircutter Relationship Specialty Start Date End Date Phil Nieves DO PCP - General 10/05/15 Phil Nieves DO Historical LMR Provider 02/16/17 documented as of this encounter Additional Source Comments The information contained in this document represents components of the legal health record. It is not the complete legal health record.[facility]
--- OUTSIDE RECORDS SUMMARY | 2025-04-25 08:45 | XMS_ITS | Encounter Summary ---
Author Organization [facility] Address [address] [place] [id number] Phone Care Team Providers Care Die Repairer Forging Name Role Phone Phil Nieves DO Primary Care Provider [phone] Phil Nieves DO Unavailable Patricia Knight COORDINATOR HOTELS Unavailable [phone] Tammy KnowlesM Unavailable Mariposa Eckert COORDINATOR HOTELS Unavailable Althea Agarwal COORDINATOR HOTELS Unavailable Berenice Hsieh COORDINATOR HOTELS Unavailable BigPhil sesay DO Unavailable Encounter Details Date Type Department Care Team (Late Contact Info) Description 04/25/2021 Procedure Pass [facility], [address] [address] Social History Tobacco Use Types Packs/Day Years [...] 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 Not on file documented as of this encounter Plan of Treatment Upcoming Encounters Date Type Department Care Team (Late st Contact Info) Description 09/06/2025 7:45 AM EDT Appointment [facility], Bone Density - [facility] [address] [place] [address] Phil Nieves DO [address] [facility] [place] [address] [place] [address] documented as of this encounter Visit Diagnoses Not on filedocumented in this encounter Care Teams Die Repairer Forging Relationship Specialty Start Date End Date Phil Nieves DO PCP - General 10/05/15 Phil Nieves DO Historical LMR Provider 02/16/17 Patricia Knight, COORDINATOR [employer]ELS [address] [place] [id number] Historical LMR Provider 02/16/17 2 Tammy Knowles CNM [address] [place] [address] Historical LMR Provider 02/16/17 2 Mariposa Eckert, COORDINATOR [employer]ELS [address] [place] [address] [email or web address] Historical LMR Provider 02/16/17 2 Althea Agarwal, COORDINATOR [employer] [address] [place] [address] Historical LMR Provider 02/16/17 2 Berenice Hsieh, COORDINATOR [employer]ELS [address] [place] [phone] Historical LMR Provider 02/16/17 2 Phil Nieves DO [address] [place] [id number] [email or web address] Insurance Assigned Provider 08/07/18 documented as of this encounter Additional Source Comments The information contained in this document represents components of the legal health record. It is not the complete legal health record.[facility]
[2025-04-25 13:54] LABS: MANUAL DIFF FLAG NO
[2025-04-25 13:59] LABS: Hematocrit 40.1 % (37.0-47.0); Hemoglobin 13.1 g/dl (12.0-16.0); Imm Gran Abs Auto 0.01 X10*3/uL (0.00-0.03); Imm Gran Pct Auto 0.2 % (0.0-0.4); Lymphocytes Absolute Auto 2.0 X10*3/uL (1.2-4.9); Mean Corpuscular HGB Conc 32.7 g/dl (31.0-35.0); Mean Corpuscular Hemoglobin 30.1 pg (27.0-33.0); Mean Corpuscular Volume 92.2 fL (80.0-98.0); NRBC Abs Auto 0.000 X10*3/uL (0.0-0.012); NRBC Pct Auto 0.0 /100WBC (0.0-0.2); Platelet Count 259 X10*3/uL (160-400); Red Blood Count 4.35 X10*6/uL (4.20-5.50); White Blood Count 5.3 X10*3/uL (4.8-10.8)
[2025-04-25 14:13] LABS: Alanine Aminotransferase 17 U/L (0-31); Albumin Level 4.3 g/dL (3.5-5.0); Alkaline Phosphatase 58 U/L (39-117); Anion Gap 10 (12-20); Aspartate Amino Transferase 18 U/L (5-31); Blood Urea Nitrogen 14 mg/dL (9-16); Calcium 9.0 mg/dL (8.4-10.2); Carbon Dioxide 26 mmol/L (22-29); Chloride 109 mmol/L (96-108); Cholesterol 155 mg/dL (<200); Estimated Glomerular Filt Rate > 60; HDL Cholesterol 50 mg/dL (>40); Potassium 4.0 mmol/L (3.3-5.1); Sodium 141 mmol/L (135-145); Total Protein 6.7 g/dL (6.5-8.0); Triglycerides 76 mg/dL (<150)
== END 2025-04-25 08:33 | disposition home or self-care (01) ==
LOC: HO.MANLDS 08:32
PROVIDERS: Visit Provider Internal Medicine
DX: Z00.00 Encounter for general adult medical examination without abnormal findings (principal); Z13.6 Encounter for screening for cardiovascular disorders
CPT/HCPCS: 36415; 80053; 80061; 85025